=== PATIENT | male | born 1965 | race Caucasian/White ===

== ENCOUNTER → 2021-11-19 | Outpatient (CLI) | payer OTHER ==
[~2021-11-19] MED LIST: GADOTERATE 0.5 MMOL/ML (CLARISCAN) 20 ML VIAL IV ONE
--- NOTE | 2021-11-19 13:32 | Diagnostic Imaging Report ---
PROCEDURE: MRI lumbar spine with and without contrast. TECHNIQUE: Multiplanar, multisequence MRI of the lumbar spine was performed with and without contrast. INDICATION: Left foot drop with no known injury. EXAMINATION: MRI lumbar spine with and without contrast 11/19/2021 FINDINGS: There is grade 1 anterolisthesis of L3 on L4 with remaining alignment preserved. Vertebral body heights appear maintained. Tip of the conus is unremarkable in appearance and location. L1-L2: There is a broad-based bulging disc with intervertebral disc space narrowing and disc desiccation. There is bilateral facet and ligamentum flavum hypertrophy. There is moderate central stenosis with narrowing of the right lateral recess. There is moderate to severe bilateral neural foraminal stenosis. L2-L3: There is intervertebral disc space narrowing and disc desiccation with a broad-based bulging disc. There is bilateral facet and ligamentum flavum hypertrophy. There is moderate central stenosis with narrowing of the lateral recesses, right worse than left. There is moderate to severe bilateral neural foraminal stenosis. L3-L4: There is intervertebral disc space narrowing and disc desiccation and a right paracentral broad-based bulging disc with bilateral facet and ligamentum flavum hypertrophy. Findings cause severe central stenosis with narrowing of the lateral recesses. There is moderate to severe left and severe right neural foraminal stenosis. L4-L5: There is disc desiccation with a broad-based bulging disc. There is bilateral facet and ligamentum flavum hypertrophy. There is secondary moderate central stenosis with narrowing of the lateral recesses, left greater than right. There is moderate to severe bilateral neural foraminal stenosis. L5-S1: There is a central disc protrusion with bilateral facet hypertrophy. There is no central stenosis. The neural foramina appear patent. Partial sacralization of the L5 vertebral body is noted. Visualized intra-abdominal structures appear unremarkable. Postcontrast images demonstrate no abnormally enhancing lesions. IMPRESSION: 1. Multilevel diffuse degenerative disease as above with severe central and bilateral neural foraminal stenosis noted at L3-L4. 2. Other findings as noted as described above. Dictated by: Dictated on workstation # [id number]
== END ==
LOC: RAD 09:30
PROVIDERS: ATTEND Nurse Practitioner
DX: M47.817 Spondylosis without myelopathy or radiculopathy, lumbosacral region (principal); M51.27 Other intervertebral disc displacement, lumbosacral region; M51.26 Other intervertebral disc displacement, lumbar region; M48.061 Spinal stenosis, lumbar region without neurogenic claudication; M21.372 Foot drop, left foot; M62.58 Muscle wasting and atrophy, not elsewhere classified, other site
CPT/HCPCS: 72158

== ENCOUNTER → 2021-11-19 | Outpatient (CLI) | payer OTHER | LOC: CARD 09:31 | PROVIDERS: ATTEND Nurse Practitioner | DX: I35.8 Other nonrheumatic aortic valve disorders (principal); I51.7 Cardiomegaly | CPT/HCPCS: 93306 ==

== ENCOUNTER 2023-07-03 09:17 | Emergency (ER) | payer OTHER ==
[~2023-07-03] VITALS: Ht 168 cm; Wt 81.3 kg
[2023-07-03 09:25] VITALS: BP 159/86
[2023-07-03] MEDS ORDERED: FAMOTIDINE INJ 20MG/2ML VIAL IV STA (09:29)
[2023-07-03] MEDS ORDERED: ANTACID SUSPENSION 30 ML UDC PO ONE (09:30)
[2023-07-03] MEDS ORDERED: ONDANSETRON INJECTION 4 MG/2 ML (SDV) IVP ONE (09:30)
[2023-07-03] MEDS ORDERED: LIDOCAINE 2% VISCOUS 15 ML UDC PO ONE (09:30)
[2023-07-03] MEDS ORDERED: ASPIRIN 81 MG CHEWABLE TABLET PO ONE (09:30)
[2023-07-03 09:33] LABS: BASOPHILS % (AUTO) 1 % (0-10); EOSINOPHILS # (AUTO) 0.1 10^3/uL (0.0-0.3); EOSINOPHILS % (AUTO) 1 % (0-10); HEMATOCRIT 45 % (40-54); HEMOGLOBIN 14.6 g/dL (13.3-17.7); LYMPHOCYTES # (AUTO) 1.4 10^3/uL (1.0-4.0); LYMPHOCYTES % (AUTO) 20 % (12-44); MEAN CORPUSCULAR HEMOGLOBIN 29 pg (25-34); MEAN CORPUSCULAR HGB CONC 33 g/dL (32-36); MEAN CORPUSCULAR VOLUME 88 fL (80-99); MEAN PLATELET VOLUME 9.2 fL (9.0-12.2); MONOCYTES # (AUTO) 0.6 10^3/uL (0.0-1.0); MONOCYTES % (AUTO) 8 % (0-12); NEUTROPHILS # (AUTO) 4.9 10^3/uL (1.8-7.8); NEUTROPHILS % (AUTO) 69 % (42-75); PLATELET COUNT 280 10^3/uL (130-400); WHITE BLOOD COUNT 7.1 10^3/uL (4.3-11.0)
--- NOTE | 2023-07-03 09:34 | ED GI ---
General Stated Complaint: N/V Source of Information: Patient Exam Limitations: No Limitations History of Present Illness Date Seen by Provider: Jul 03, 2023 Time Seen by Provider: 09:20 Initial Comments 57-year-old male with past medical history most notable for diabetes coming in due to epigastric burning discomfort, vomiting, and general malaise. Started a couple of days ago. Last vomited this morning which was nonbloody nonbilious. Has not taken any medicines for it as of yet. The burning goes up into his chest. Denies any personal cardiac history. Otherwise denying any other acute complaints including no severe abdominal pain, diarrhea, rash, fever. Allergies and Home Medications Allergies Coded Allergies: No Known Drug Allergies (Unverified , 11/19/21) Patient Home Medication List Home Medication List Reviewed: Yes Review of Systems Review of Systems Constitutional: No fever EENTM: No Symptoms Reported Respiratory: No Symptoms Reported Cardiovascular: No Symptoms Reported Gastrointestinal: See HPI Genitourinary: No Symptoms Reported Musculoskeletal: no symptoms reported Skin: no symptoms reported Psychiatric/Neurological: No Symptoms Reported Endocrine: No Symptoms Reported Hematologic/Lymphatic: No Symptoms Reported Physical Exam Vital Signs Capillary Refill : Height/Weight/BMI Height: '" Weight: lbs. oz. kg; BMI Method: General Appearance: WD/WN, no apparent distress HEENT: PERRL/EOMI, normal ENT inspection Neck: non-tender, full range of motion, supple, normal inspection Respiratory: chest non-tender, lungs clear, normal breath sounds, no respiratory distress, no accessory muscle use Cardiovascular: regular rate, rhythm, no edema, no murmur Gastrointestinal: normal bowel sounds, non tender, soft; No distended, No guarding, No rebound Extremities: normal range of motion, non-tender, normal inspection, no pedal edema, no calf tenderness, normal capillary refill Back: normal inspection, no CVA tenderness Neurologic/Psychiatric: no motor/sensory deficits, alert, normal mood/affect Skin: normal color, warm/dry Progress/Results/Core Measures Results/Orders Lab Results Laboratory Tests Test 07/03/23 09:26 Range/Units White Blood Count 7.1 4.3-11.0 10^3/uL Red Blood Count 5.05 4.30-5.52 10^6/uL Hemoglobin 14.6 13.3-17.7 g/dL Hematocrit 45 40-54 % Mean Corpuscular Volume 88 80-99 fL Mean Corpuscular Hemoglobin 29 25-34 pg Mean Corpuscular Hemoglobin Concent 33 32-36 g/dL Red Cell Distribution Width 13.2 10.0-14.5 % Platelet Count 280 130-400 10^3/uL Mean Platelet Volume 9.2 9.0-12.2 fL Immature Granulocyte % (Auto) 0 % Neutrophils (%) (Auto) 69 42-75 % Lymphocytes (%) (Auto) 20 12-44 % Monocytes (%) (Auto) 8 0-12 % Eosinophils (%) (Auto) 1 0-10 % Basophils (%) (Auto) 1 0-10 % Neutrophils # (Auto) 4.9 1.8-7.8 10^3/uL Lymphocytes # (Auto) 1.4 1.0-4.0 10^3/uL Monocytes # (Auto) 0.6 0.0-1.0 10^3/uL Eosinophils # (Auto) 0.1 0.0-0.3 10^3/uL Basophils # (Auto) 0.0 0.0-0.1 10^3/uL Immature Granulocyte # (Auto) 0.0 0.0-0.1 10^3/uL Prothrombin Time 12.4 12.2-14.7 SEC INR Comment 0.9 0.8-1.4 Activated Partial Thromboplast Time 26 24-35 SEC Sodium Level 138 135-145 MMOL/L Potassium Level 4.0 3.6-5.0 MMOL/L Chloride Level 99 98-107 MMOL/L Carbon Dioxide Level 27 21-32 MMOL/L Anion Gap 12 5-14 MMOL/L Blood Urea Nitrogen 14 7-18 MG/DL Creatinine 0.60 0.60-1.30 MG/DL Estimat Glomerular Filtration Rate 111 BUN/Creatinine Ratio 23 Glucose Level 138 H 70-105 MG/DL Calcium Level 10.9 H 8.5-10.1 MG/DL Corrected Calcium 8.5-10.1 MG/DL Magnesium Level 1.8 1.6-2.4 MG/DL Total Bilirubin 0.7 0.1-1.0 MG/DL Aspartate Amino Transf (AST/SGOT) 22 5-34 U/L Alanine Aminotransferase (ALT/SGPT) 22 0-55 U/L Alkaline Phosphatase 83 40-136 U/L Troponin I < 0.30 <0.30 NG/ML Total Protein 8.3 H 6.4-8.2 GM/DL Albumin 5.0 H 3.2-4.5 GM/DL Lipase 48 8-78 U/L My Orders Orders - RUBIN ASKEW MD Cbc And Automated Diff (07/03/23:29) Magnesium (07/03/23:29) Chest 1 View Ap/Pa Only (07/03/23:29) Ekg Tracing (07/03/23:) Comprehensive Metabolic Panel (07/03/23:) Protime With Inr (07/03/23:) Partial Thromboplastin Time (07/03/23:) O2 (07/03/23:) Monitor-Rhythm Ecg Trace Only (07/03/23:29) Aspirin Chewable Tablet (Aspirin Chewabl (07/03/23 09:30) Ed Iv/Invasive Line Start (07/03/23:29) Lipase (07/03/23:) Troponin I Fs (07/03/23:29) Ondansetron Injection (Ondansetron Inj (07/03/23 09:30) Lidocaine 2% Viscous 15 Ml (Xylocaine Vi (07/03/23 09:30) Antacid Suspension (Antacid Suspension (07/03/23 09:30) Famotidine Injection (Famotidine Injec (07/03/23 09:29) Medications Given in ED Current Medications Medications Dose Ordered Sig/Svitlana Route Start Time Stop Time Status Last Admin Dose Admin Al Hydrox/Mg Hydrox/Simethicone 30 ml ONCE ONCE PO 07/03/23 09:30 07/03/23 09:31 DC 07/03/23 09:48 30 ML Aspirin 324 mg ONCE ONCE PO 07/03/23 09:30 07/03/23 09:31 DC 07/03/23 09:47 324 MG Lidocaine HCl 15 ml ONCE ONCE PO 07/03/23 09:30 07/03/23 09:31 DC 07/03/23 09:48 15 ML Ondansetron HCl 4 mg ONCE ONCE IVP 07/03/23 09:30 07/03/23 09:31 DC 07/03/23 09:47 4 MG Progress Progress Note : Progress Note 57-year-old male with above history coming in due to vomiting and epigastric burning. ABCs were intact and vitals were stable on presentation. Physical exam reassuring including a soft and nontender abdomen. EKG ordered and interpreted by me given that the pain radiates up through his chest. It shows no acute ischemic changes. Chest x-ray ordered and interpreted by me showing no pneumothorax, no obvious pneumonia, normal cardiac silhouette. An IV was placed and basic labs were obtained and were significant for normal creatinine, normal white blood cell count, negative troponin, normal lipase. ACS very unlikely, especially given the clinical scenario. The patient was given a GI cocktail and nausea medications. He is feeling significantly better. I will send a prescription and have him follow-up with his PCP as an outpatient. Initial ECG Impression Date: Jul 03, 2023 Initial ECG Impression Time: 09:52 Initial ECG Rate: 90 Initial ECG Rhythm: Normal Sinus Comment Narrow QRS, normal axis, no significant ST changes or T wave abnormalities Diagnostic Imaging Diagonstic Imaging: Xray (chest) Comments [facility], [place] NAME: MONIQUE HERRING [facility] REC#: [id number] PT STATUS: REG ER : 1965 PHYSICIAN: RUBIN ASKEW MD ADMIT DATE: 07/03/23/ER FS Signed Date of Exam:07/03/23 CHEST 1 VIEW AP/PA ONLY CHEST 1 VIEW AP/PA ONLY Indication: Chest pain. Comparison: None available. Findings: No focal airspace disease in the visualized lungs. No pleural effusion or pneumothorax. Normal cardiomediastinal silhouette. Impression: 1. No acute cardiopulmonary process by portable radiography. Dictated by: Dictated on workstation # [id number] Dict: 07/03/23953 Trans: 07/03/23953 [facility] [id number] Interpreted by: JOSE ANTONIO CLARK MD Electronically signed by: JOSE ANTONIO CLARK MD 07/03/2354 Departure Impression Primary Impression: Vomiting in adult Additional Impression: Epigastric pain Disposition: 01 HOME, SELF-CARE Condition: Stable Departure-Patient Inst. Decision time for Depature: 10:20 Referrals: NO,LOCAL PHYSICIAN (PCP/Family) Primary Care Physician Patient Instructions: Gastritis ED Add. Discharge Instructions: This is likely a viral illness causing the vomiting. It will improve with time. Nausea medicines were sent to your pharmacy. You can also take [id number] Pepcid or Maalox to help with the pain. Scripts Promethazine HCl (Promethazine Tablet) 25 Mg Tablet 25 MG PO Q6H PRN for NAUSEA/VOMITING-2ND LINE for 5 Days, #20 TAB Prov: RUBIN ASKEW MD 07/03/23 Ondansetron (Ondansetron Odt) 4 Mg Tab.rapdis 4 MG SL Q6H PRN for NAUSEA/VOMITING for 5 Days, #20 TAB Prov: RUBIN ASKEW MD 07/03/23 RUBIN ASKEW MD Jul 03, 2023 09:34
[2023-07-03 09:42] LABS: PROTHROMBIN TIME PATIENT 12.4 SEC (12.2-14.7)
[2023-07-03 09:43] LABS: INR 0.9 (0.8-1.4)
[2023-07-03 09:48] LABS: CHLORIDE 99 MMOL/L (98-107); SODIUM 138 MMOL/L (135-145)
[2023-07-03 09:49] LABS: ALANINE AMINOTRANSFERASE 22 U/L (0-55); ALKALINE PHOSPHATASE 83 U/L (40-136); BILIRUBIN,TOTAL 0.7 MG/DL (0.1-1.0); BUN/CREATININE RATIO 23; CALCIUM 10.9 MG/DL (8.5-10.1); CARBON DIOXIDE 27 MMOL/L (21-32); GFR ESTIMATED 111; GLUCOSE 138 MG/DL (70-105); LIPASE 48 U/L (8-78); MAGNESIUM 1.8 MG/DL (1.6-2.4); TOTAL PROTEIN 8.3 GM/DL (6.4-8.2)
--- NOTE | 2023-07-03 09:55 | Diagnostic Imaging Report ---
CHEST 1 VIEW AP/PA ONLY Indication: Chest pain. Comparison: None available. Findings: No focal airspace disease in the visualized lungs. No pleural effusion or pneumothorax. Normal cardiomediastinal silhouette. Impression: 1. No acute cardiopulmonary process by portable radiography. Dictated by: Dictated on workstation # [id number]
[2023-07-03] MEDS ORDERED: ONDA4TAB11 SL (10:16)
[2023-07-03] MEDS ORDERED: PROM25TA14 PO (10:16)
== END 2023-07-03 10:27 | disposition home or self-care (01) ==
LOC: EDUNIT# 09:17 → ER FS 09:19
DX: R10.13 Epigastric pain (principal); R11.10 Vomiting, unspecified
CPT/HCPCS: 36415; 71045; 80053; 83690; 83735; 84484; 85025; 85610; 85730; 93005